=== PATIENT | male | born 2000 | race Caucasian/White ===

== ENCOUNTER 2019-09-20 13:12 | Outpatient (CLI) | payer BC, SELFPAY ==
--- NOTE | ~2019-09-20 | MR_ITS ---
EXAMINATION: MR shoulder RT w con DATE: 09/20/2019 14:59 INDICATION: Right shoulder pain. TECHNIQUE: Magnetic resonance imaging (MRI) of the right shoulder was performed following intra-trey cular gadolinium contrast injection and without intravenous contrast. Details of the glenohumeral linda nt injection have been dictated separately. Sequences included axial T2-weighted FS FSE, axial T1-we ighted FS FSE, coronal oblique T1-weighted FS FSE, coronal oblique T2-weighted FSE, sagittal T2-weigh demetris FS FSE, sagittal T1-weighted FSE, and ABER (abduction external rotation) T1-weighted FS FSE. COMPARISON: None. FINDINGS: Coracoacromial arch: The acromion undersurface is curved in morphology (type II). The coracoacromial ligament is normal. M ild acromioclavicular osteoarthritis. Rotator cuff: The subscapularis, infraspinatus and teres minor tendons are normal. The supraspinatus tendon appears normal in the standard planes imaging however there is subtle contrast imbibition along the articula r surface approximately 1 cm from the greater tuberosity footplate suggesting articular sided fraying without a discrete measurable tear defect. Normal rotator cuff muscle bulk and signal. Biceps tendon and glenoid labrum: Long head of the biceps tendon is normal. Superior, anterior to posterior tear of the glenoid labrum (SLAP tear) occurring near the base of the labrum at the 12:00 position and extending more peripheral ly into the labrum to the 11:00 position. Normal anterosuperior sublabral foramen. Bones and other: Normal marrow signal with no edema, fracture or abnormal marrow replacing process. There is approxima tely 6-7 mm diameter shallow concavity to the articular cortex at the superomedial aspect of the andrea ral head which is also evident on the prior outside institution radiographs dated 09/06/2019 as well as on the fluoroscopic images at the time of the joint injection. The defect measures approximately 2 m m in depth and there appears be an compensatory thickening of the overlying articular cartilage which fills the defect with no evident defect in the normal convex contour to the articular cortex either on the current MRI images as outlined by contrast on the fluoroscopic images of rotating arm obtained at the time of the injection. Articular cartilage appears appears otherwise normal. IMPRESSION: 1. Shallow articular sided fraying along the critical zone of the supraspinatus tendon and SLAP tear at the 12-11:00 position of the superior glenoid labrum suggesting internal impingement. 2. 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 Reviewed, dictated and finalized at location A. IMPRESSION: 1. Shallow articular sided fraying along the critical zone of the supraspinatus tendon and SLAP tear at the 12-11:00 position of the superior glenoid labrum s uggesting internal impingement. 2. 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
--- NOTE | ~2019-09-20 | XR_ITS ---
EXAMINATION: XR fl inj shoulder RT - MR/CT DATE: 09/20/2019 14:13 INDICATION: Right shoulder pain TECHNIQUE: A time-out was performed to verify the patient's name, date of , and procedure to b e performed. The procedure including the risks, benefits, and alternatives was discussed with the pat ient. Risks discussed included bleeding and infection. The patient understood the risks and agreed to proceed. The skin overlying the rotator cuff interval of the right glenohumeral joint was prepped a nd draped in usual sterile fashion. Anesthetic was administered with 1% lidocaine subcutaneously. A 22 G needle was advanced under fluoroscopic guidance into the joint. Injection of 12 mL of Omnipaqu e 240 confirmed intra-articular position of the needle. Subsequently, injectate consisting of 12 mL of 3:1 mixture of sterile saline:Omnipaque 240 mixed 200:1 with 529 mg/mL Multihance gadolinium contr ast was injected. Washout of contrast was seen confirming intra-articular administration. The needle was removed and the entry site was cleaned and dressed. There were no immediate complications. Fluor oscopy exposure time was 0.2 minutes. The total number of images was 117. FINDINGS: Real-time fluoroscopy demonstrates the needle in the right glenohumeral joint. On the initi al associate software engineer image there is a small shallow contact the articular cortex at the superomedial aspect of th e humeral head near the level of the superior rim of the glenoid. There is over a normal smooth conto ur to the articular surface of the cartilage clinically needed by contrast following joint injection suggesting compensatory thickening of the articular cartilage at this location, further suggesting th at this is a chronic developmental abnormality. IMPRESSION: 1. Glenohumeral injection of a dilute gadolinium contrast mixture for subsequent MRI arthrogram which will be dictated separately. Reviewed, dictated and finalized at location A. IMPRESSION: 1. Glenohumeral injection of a dilute gadolinium contrast mixture for subsequen t MRI arthrogram which will be dictated separately.
== END 2019-09-20 13:13 | disposition home or self-care (01) ==
PROVIDERS: PCP Family Medicine; Visit Provider Orthopaedic Surgery
DX: M25.511 Pain in right shoulder (principal); S43.431A Superior glenoid labrum lesion of right shoulder, initial encounter
CPT/HCPCS: 23350; 73222; 77002; A9577; Q9966